=== PATIENT | female | born 1985 | race Caucasian/White ===

== ENCOUNTER 2018-05-09 16:24 | Emergency (ER) | payer OTHER ==
--- NOTE | 2018-05-09 16:26 | PDOC ---
History of Present Illness - General Chief Complaint: SIRS, Suspected/Possible Stated Complaint: UTI SEPSIS Time Seen by Provider: 05/09/18 16:26 History Source: Patient Exam Limitations: Language Barrier (conference interpreter language services used. also used male crystal machining coordinator in room) - History of Present Illness Initial Comments: 05/09/18 17:01 32 yo F with no previous medical hx BIBA (s/p 1 L of NS) presents to the emergency department with fever, nausea, and vomiting (5x, NBNB) for the past 2 days with a recent vaginal delivery without complications on 03/28/2018. The patient presents with multiple bodily complaints including chest pain, dysuria, midline back pain, abdominal pain, and generalized body aches. She has been having RLQ pain non radiating described "colicky" in nature. Denies recent sick contacts, hematochezia, diarrhea, and last BM yesterday. In addition, she states she is having chest pain in the substernal region, sharp, non radiating, and constant for the past 2-3 hours with associative SOB. In addition, she endorses having dysuria for the past two weeks, but denies hematuria, vaginal bleeding, flank pain, and vaginal discharge. Denies recent travels, recent immobilization, recent surgeries, hormone use, and hx of DVT/PE. Pmhx: None Shx: abdominoplasty 2014 Meds: None Allergies: NKDA Social: Denies tobacco, alcohol, and substance abuse. PMD: Denies one. Her was at [facility]. Past History - Past Medical History Allergies/Adverse Reactions: Allergies Allergy/AdvReac Type Severity Reaction Status Date / Time No Known Allergies Allergy Verified 05/09/18 16:25 Home Medications: Ambulatory Orders Ciprofloxacin HCl 500 mg PO BID #14 tablet 05/09/18 Review of Systems - Review of Systems Able to Perform ROS?: Yes (conference interpreter used) Is the patient limited Cameroonian proficient: Yes Constitutional: Yes: Chills, Diaphoresis, Fever, Malaise. No: Unintentional Wgt. Loss HEENTM: No: Recent change in vision, Nose Pain, Throat Pain, Mouth Pain, Mouth Swelling Respiratory: Yes: Shortness of Breath. No: Cough, Hemoptysis Cardiac (ROS): Yes: Chest Pain. No: Lightheadedness, Palpitations, Syncope, Chest Tightness ABD/GI: Yes: Nausea, Poor Fluid Intake, Vomiting, Abdominal cramping. No: Constipated, Diarrhea, Rectal Bleeding, Tarry Stools : Yes: Dysuria, Other (denies vaginal bleeding and discharge). No: Burning, Discharge, Flank Pain, Hematuria, Urgency Musculoskeletal: Yes: Back Pain Integumentary: No: Bruising, Rash Neurological: Yes: Headache. No: Numbness, Weakness, Unsteady Gait, Ataxia, Dizziness Psychiatric: No: Stressors Endocrine: No: Unexplained Weight Loss Hematologic/Lymphatic: No: Anemia *Physical Exam - Physical Exam General Appearance: Yes: Nourished, Appropriately Dressed, Other (looks uncomfortable.). No: Apparent Distress HEENT: positive: EOMI, MONICA, Normal Voice, Symmetrical. negative: Scleral Icterus (R), Scleral Icterus (L) Neck: positive: Trachea midline, Normal Thyroid. negative: Tender, Decreased range of motion, Lymphadenopathy (R), Lymphadenopathy (L), Tender lateral, Tender midline Respiratory/Chest: positive: Lungs Clear, Normal Breath Sounds, Rapid RR. negative: Chest Tender, Respiratory Distress, Accessory Muscle Use, Crackles, Rales, Rhonchi, Stridor, Wheezing Cardiovascular: positive: Regular Rhythm, S1, S2, Tachycardia. negative: Systolic Murmur Gastrointestinal/Abdominal: positive: Normal Bowel Sounds, Tender (RLQ, LLQ, suprapubic regions. ), Flat, Soft. negative: Distended, Rebound, Hernia Lymphatic: negative: Adenopathy Musculoskeletal: positive: Normal Inspection, Vertebral Tenderness (L5 region midline). negative: CVA Tenderness Extremity: positive: Normal Capillary Refill, Normal Inspection, Normal Range of Motion. negative: Tender, Pedal Edema, Swelling, Calf Tenderness Integumentary: positive: Normal Color, Dry, Warm, Other (hot to the touch ). negative: Pale, Cold, Clammy, Diaphoresis, Rash Neurologic: positive: quality control director II-XII NML intact, Fully Oriented, Alert, Normal Mood/ Affect, Normal Response, Motor Strength 5/5. negative: Facial Droop, Sensory Deficit ED Treatment Course - LABORATORY CBC & Chemistry Diagram: 05/09/18 16:59 05/09/18 16:59 Medical Decision Making - Medical Decision Making 05/09/18 17:40 32 yo F with no previous medical hx BIBA (s/p 1 L of NS) presents to the emergency department with fever, nausea, and vomiting (5x, NBNB) for the past 2 days with a recent vaginal delivery without complications on 03/28/2018. Initial vitals: Initial Vital Signs Temp Pulse Resp BP Pulse Ox 102.4 F H 115 H 20 118/68 100 05/09/18 16:26 05/09/18 16:26 05/09/18 16:26 05/09/18 16:26 05/09/18 16:26 Work up: pt presents to the ED with multiple complaints: ddx is broad. chest pain: PE (cannot PERC out due to tachycardia; pt denies recent travels/ immobilization/surgeries/hormone use/hx of DVT/PE; higher risk due to recent likely d-dimer will be elevated due to inflammation (SIRS positive) vs ACS (less likely) vs pericarditis vs PNA vs pleuritis. RLQ pain/dysuria: appendicitis vs colitis vs nephrolithiasis vs UTI vs urosepsis vs retained products of conception (unlikely due to being 6 months out ) vs infectious etiology within the system fever/chills with tachycardia: influenza vs bacterial etiology, thyroid etiology (thyrotoxicosis unlikely denies hx but higher risk due to post- period). Following tests will be ordered: sepsis protocol plus the following 05/09/18 19:06 HR was reassessed it was 84. 103/61. *DC/Admit/Observation/Transfer Diagnosis at time of Disposition: UTI (urinary tract infection) Qualifiers: Urinary tract infection type: site unspecified Hematuria presence: without hematuria Qualified Code(s): N39.0 - Urinary tract infection, site not specified - Discharge Dispostion Disposition: HOME Decision to Admit order: No - Prescriptions Prescriptions: Ciprofloxacin HCl 500 mg PO BID #14 tablet - Referrals Referrals: Jay Winter MD [Primary Care Provider] - Elkin Rangel MD [Staff Physician] - - Patient Instructions Printed Discharge Instructions: DI for Urinary Tract Infection (UTI) Additional Instructions: You were seen in the emergency department for your fever and abdominal pain. Your labs show no elevation in your white blood cell count, but your urine showed white blood cells and findings consistent with UTI. We assessed whether you had a pulmonary embolism and the test was negative. Your temperature is elevated and your heart rate is too but this is consistent with an elevated temperature. We are prescribing you ciprofloxacin. Take this as directed on the label. In addition, and this is very important, please make sure to express your breast milk, meaning waste the breast milk 2 hours after taking the medication and then feed the baby breast milk. This is very important. We are referring you to an OBGYN doctor here that will call you Friday morning. They will try to get you into an appointment on Friday coming up. Please return to the emergency department if you have worsening abdominal pain, worsening fevers and chills, vomiting that is uncontrollable, and if you have new pain emerge. Please follow up with your primary medical doctor within 48-72 hours after discharge. - Post Discharge Activity
[2018-05-09 16:28] VITALS: BMI 24.5
[2018-05-09] MEDS ORDERED: SODIUM CHLORIDE 1,823 ML IV ONE (16:48)
[2018-05-09] MEDS ORDERED: ACETAMINOPHEN 1000 MG/100 ML VIAL (NON FORMULARY) IVPB ONE (16:50)
[2018-05-09] MEDS ORDERED: ONDANSETRON 4 MG/2 ML VIAL IVPUSH ONE (16:52)
--- NOTE | 2018-05-09 16:53 | PDOC ---
Attending Attestation - HPI HPI: 05/09/18 17:18 The patient is a 32 year old female with no reported past medical history presents to the emergency department with fever, nausea, vomiting, dysuria and right lower quadrant pain. The patient is 1 month s/p vaginal delivery with epidural (with complication/ reports they had to stick her multiple times). The patient reports she has been having 2 weeks of dysuria accompanied by a sudden onset of midsternal anterior chest pain, nonradiating, associated with shortness of breath. En route to the ER, the patients EKG read sinus tachycardia. Denies vaginal bleeding, hematochezia, diarrhea, cough, recent travel, illness, ear pain. No hx of thyroid problems. PCP: None. <Danielle Chairez - Last Filed: 05/09/18 17:18> - Physicial Exam PE: 05/09/18 19:25 Agree with resident exam. patient is alert and oriented and in no acute distress. + Mild tachycardia. Heart regular rate and rhythm. Lungs clear b/ l. Abdomen soft, non tender, non distended, without guarding or rebound. 05/09/18 19:32 - Medical Decision Making 05/09/18 19:27 pt presents to the ED complaining of LLQ pain and dysuria for two weeks and substernal, pleuritic chest pain for three hours. 1. dysuria--likely secondary to UTI. patient is also complaining of abdominal pain and flank pain and has fever. Will treat for pyelonephritis. According to [place] [employer] literature, Cipro is safe during breast feeding, so will treat with cipro. Will instruct the patient to dump her milk 2 hours after dosing and to inform the child's network security administrator that she is and on cipro. She is tolerating PO with normal lactate, so she is likely safe for discharge, although she will be instructed to the Ed for worsening symptoms. 2. Chest pain--concern for PE, given her recent post status and the timing of her symptoms. Low risk per wells criteria, so D dimer checked, which was found to be elevated. Will check CT PE. 05/09/18 19:32 <Ninoska Rae - Last Filed: 05/09/18 19:34>
[2018-05-09 17:11] LABS: VENOUS PC02 40.4 mmHg (38-52); VENOUS PH 7.41 (7.32-7.42); VENOUS PO2 44.8 mmHg (28-48)
[2018-05-09] MEDS ORDERED: ACETAMINOPHEN INJECTION 100 ML IVPB ONE (17:11)
[2018-05-09] MEDS ORDERED: ONDANSETRON 4 MG/2 ML VIAL ONE (17:11)
[2018-05-09 17:15] LABS: BASO % 0.2 % (0-2.0); EOS % 0.3 % (0-4.5); HEMATOCRIT 35.5 % (32.4-45.2); HEMOGLOBIN 12.5 GM/dL (10.7-15.3); LYMPH % 9.1 % (8-40); MCHC 35.3 g/dl (32.0-36.0); MEAN CELL VOLUME 85.1 fl (80-96); MONO % 4.6 % (3.8-10.2); NEUT % 85.8 % (42.8-82.8); PLATELET COUNT 137 K/MM3 (134-434); RBC 4.17 M/mm3 (3.60-5.2); RDW 16.6 % (11.6-15.6); WHITE BLOOD COUNT 9.7 K/mm3 (4.0-10.0)
[2018-05-09 17:22] LABS: INR 1.26 (0.83-1.09); PROTHROMBIN TIME (PATIENT) 14.9 SEC (9.7-13.0)
[2018-05-09 17:41] LABS: ALBUMIN 3.5 g/dl (3.4-5.0); ALK PHOS 101 U/L (45-117); ANION GAP 10 MMOL/L (8-16); BILIRUBIN,TOTAL 0.7 mg/dL (0.2-1); BLOOD UREA NITROGEN 14 mg/dL (7-18); CHLORIDE 105 mmol/L (98-107); CO2 25 mmol/L (21-32); CREATININE 0.8 mg/dL (0.55-1.3); GLUCOSE,RANDOM 114 mg/dL (74-106); POTASSIUM 3.2 mmol/L (3.5-5.1); SGOT/AST 31 U/L (15-37); SGPT/ALT 50 U/L (13-61); SODIUM 139 mmol/L (136-145)
[2018-05-09 17:45] LABS: URINE APPEARANCE CLOUDY; URINE BILIRUBIN NEGATIVE (<2.0 mg/dL); URINE COLOR YELLOW; URINE GLUCOSE (UA) NEGATIVE (NEGATIVE); URINE KETONE NEGATIVE (NEGATIVE); URINE LEUK ESTERASE 2+ (NEGATIVE); URINE NITRITE POSITIVE (NEGATIVE); URINE PROTEIN 1+ (NEGATIVE); URINE UROBILINOGEN NEGATIVE mg/dL (0.2-1.0)
[2018-05-09 18:01] LABS: EPI CELLS RARE /HPF (FEW); URINE BACTERIA MANY /hpf (NONE SEEN); URINE HYALINE CAST 2 /lpf; URINE MUCUS RARE
[2018-05-09] MEDS ORDERED: CIPROFLOXACIN 500 MG TABLET (RESTRICTED TO ID) PO ONE (18:14)
[2018-05-09] MEDS ORDERED: CEFTRIAXONE 250 MG in DEXTROSE 5%-WATER - 50 ML IVPB ONE (20:45)
[2018-05-09] MEDS ORDERED: cefTRIAXone SODIUM 1 GM VIAL ONE (20:59)
[2018-05-09 22:23] VITALS: BP 100/64; PULSE 112; TEMP 98.1
--- NOTE | 2018-05-10 07:01 | PDOC ---
*Physical Exam - Vital Signs Last Vital Signs Temp Pulse Resp BP Pulse Ox 98.1 F 112 H 18 100/64 98 05/09/18 22:23 05/09/18 22:23 05/09/18 22:23 05/09/18 22:23 05/09/18 22:23 ED Treatment Course - LABORATORY CBC & Chemistry Diagram: 05/09/18 16:59 05/09/18 16:59 - ADDITIONAL ORDERS Additional order review: Laboratory Results 05/09/18 16:59 Blood Type O POSITIVE Antibody Screen Negative 05/09/18 16:59 Blood Culture - Preliminary Blood - Peripheral Venous Pending Organism 05/09/18 16:59 RBC 4.17 MCV 85.1 MCHC 35.3 RDW 16.6 H MPV 9.0 Neutrophils % 85.8 H Lymphocytes % 9.1 Monocytes % 4.6 Eosinophils % 0.3 Basophils % 0.2 - Medications Given in the ED: ED Medications Discontinued Medications Generic Name Dose Route Start Last Admin Trade Name Freq PRN Reason Stop Dose Admin Acetaminophen 1,000 mg 05/09/18 16:50 05/09/18 17:26 Ofirmev Injection - IVPB 05/09/18 16:51 1,000 mg ONCE ONE Administration Ceftriaxone Sodium 250 mg 05/09/18 21:01 05/09/18 21:10 Rocephin - IM 05/09/18 21:02 250 mg ONCE ONE Administration Ciprofloxacin 500 mg 05/09/18 18:14 05/09/18 18:43 Cipro (Restricted To Id) PO 05/09/18 18:15 500 mg ONCE ONE Administration Sodium Chloride 1,823 mls @ 911.5 mls/hr 05/09/18 16:48 05/09/18 16:59 Normal Saline - 30 ml/kg infuse over 2 hr (1823 ml) 05/09/18 18:47 911.5 mls/hr IV Administration ONCE ONE Ceftriaxone Sodium 250 mg/ 50 mls @ 100 mls/hr 05/09/18 20:45 05/09/18 21:17 Dextrose IVPB 05/09/18 21:14 Not Given ONCE ONE Ondansetron HCl 4 mg 05/09/18 16:52 05/09/18 17:27 Zofran Injection IVPUSH 05/09/18 16:53 4 mg ONCE ONE Administration Medical Decision Making - Medical Decision Making 05/10/18 07:00 I called both phone #s and left messages asking pt to return for her positive blood culture: GRAM + bacilli in pairs. *DC/Admit/Observation/Transfer Diagnosis at time of Disposition: UTI (urinary tract infection) Qualifiers: Urinary tract infection type: site unspecified Hematuria presence: without hematuria Qualified Code(s): N39.0 - Urinary tract infection, site not specified - Discharge Dispostion Disposition: HOME Condition at time of disposition: Improved - Prescriptions Prescriptions: Ciprofloxacin HCl 500 mg PO BID #14 tablet - Referrals Referrals: Jay Winter MD [Primary Care Provider] - Elkin Rangel MD [Staff Physician] - - Patient Instructions Printed Discharge Instructions: DI for Urinary Tract Infection (UTI) Additional Instructions: You were seen in the emergency department for your fever and abdominal pain. Your labs show no elevation in your white blood cell count, but your urine showed white blood cells and findings consistent with UTI. We assessed whether you had a pulmonary embolism and the test was negative. Your temperature is elevated and your heart rate is too but this is consistent with an elevated temperature. We are prescribing you ciprofloxacin. Take this as directed on the label. In addition, and this is very important, please make sure to express your breast milk, meaning waste the breast milk 2 hours after taking the medication and then feed the baby breast milk. This is very important. We are referring you to an OBGYN doctor here that will call you Friday morning. They will try to get you into an appointment on Friday coming up. Please return to the emergency department if you have worsening abdominal pain, worsening fevers and chills, vomiting that is uncontrollable, and if you have new pain emerge. Please follow up with your primary medical doctor within 48-72 hours after discharge. - Post Discharge Activity
--- NOTE | 2018-05-11 11:24 | EKG ---
Test Reason : Blood Pressure : / mmHG Vent. Rate : 112 BPM Atrial Rate : 112 BPM P-R Int : 144 ms QRS Dur : 078 ms QT Int : 326 ms P-R-T Axes : 062 -01 007 degrees QTc Int : 444 ms SINUS TACHYCARDIA OTHERWISE NORMAL ECG NO PREVIOUS ECGS AVAILABLE Confirmed by DANIEL GALE MD ([id number]) on 05/11/2018 11:23:46 AM Referred By: Confirmed By:DANIEL GALE MD
== END 2018-05-09 22:27 | disposition home or self-care (01) ==
LOC: JER 16:24
PROC: 3E02329 Introduction of Other Anti-infective into Muscle, Percutaneous Approach (ICD-10-PCS; principal; 2018-05-09)
PROC: 3E033GC Introduction of Other Therapeutic Substance into Peripheral Vein, Percutaneous Approach (ICD-10-PCS; 2018-05-09)
PROC: 3E0337Z Introduction of Electrolytic and Water Balance Substance into Peripheral Vein, Percutaneous Approach (ICD-10-PCS; 2018-05-09)
PROC: 3E0337Z Introduction of Electrolytic and Water Balance Substance into Peripheral Vein, Percutaneous Approach (ICD-10-PCS; 2018-05-09)
DX: O86.29 Other urinary tract infection following delivery (principal)
CPT/HCPCS: 36415; 71275-TC; 80053; 81003; 81015; 82803; 83605; 84436; 84439; 84443; 84484; 84703; 85025; 85379; 85610; 85730; 86850; 86900; 86901; 87040; 87086; 87186; 87491; 87591; 87661; 87804; 93005; 93010; 96361; 96372; 96374; 96375; 99285-25; J0131; J7030

== ENCOUNTER 2018-09-01 16:48 | Emergency (ER) | payer OTHER ==
[2018-09-01 17:03] VITALS: BMI 30.9
[2018-09-01] MEDS ORDERED: ACETAMINOPHEN 1000 MG/100 ML VIAL (NON FORMULARY) IVPB ONE (17:24)
[2018-09-01] MEDS ORDERED: SODIUM CHLORIDE 0.9% 500 ML INFUS.BAG IV ONE (17:24)
[2018-09-01] MEDS ORDERED: CEFTRIAXONE 1,000 MG in DEXTROSE 5%-WATER - 50 ML IVPB ONE (17:26)
--- NOTE | 2018-09-01 17:27 | PDOC ---
History of Present Illness - General Chief Complaint: Urinary Problem Stated Complaint: PAIN/CHILLS Time Seen by Provider: 09/01/18 17:16 - History of Present Illness Initial Comments: 09/01/18 17:25 35-year-old female with fever malaise 2 days dysuria and bilateral flank pain no comorbidities Past History - Past Medical History Allergies/Adverse Reactions: Allergies Allergy/AdvReac Type Severity Reaction Status Date / Time No Known Allergies Allergy Verified 09/01/18 16:59 Home Medications: Ambulatory Orders Ibuprofen [Motrin -] 400 mg PO TID 09/01/18 COPD: No - Suicide/Smoking/Psychosocial Hx Smoking History: Never smoked Have you smoked in the past 12 months: No Hx Alcohol Use: No Drug/Substance Use Hx: No Review of Systems - Review of Systems Constitutional: Yes: See HPI, Chills, Fever, Malaise, Night Sweats : Yes: Burning, Dysuria, Flank Pain *Physical Exam - Vital Signs Last Vital Signs Temp Pulse Resp BP Pulse Ox 101.7 F H 132 H 20 105/58 L 98 09/01/18 16:59 09/01/18 16:59 09/01/18 16:59 09/01/18 16:59 09/01/18 16:59 - Physical Exam Comments: 09/01/18 17:25 HEAD: NC/AT EYES: Conjuntiva clear Ears: Canals and TM's normal NOSE: No d/c THROAT: Moist mucous membrances, oral pharanx clear, uvula midline NECK: Supple without adenopathy CARDIAC: S1 S2 LUNGS: CTA Full and Equal breath sounds ABDOMEN: Soft NT ND + CVAT B MS: Full ROM in all joints without edema NEUROLOGIC: No gross sensory or motor deficits, NVID SKIN: Normal color and temperature no lesions or rashes Medical Decision Making - Medical Decision Making 09/01/18 17:26 I suspect urosepsis, I will transfer patient to main ER *DC/Admit/Observation/Transfer Diagnosis at time of Disposition: UTI (urinary tract infection) - Referrals - Patient Instructions - Post Discharge Activity
[2018-09-01] MEDS ORDERED: ACETAMINOPHEN INJECTION 100 ML IVPB ONE (17:32)
[2018-09-01 17:56] LABS: EPI CELLS 2.3 /HPF (0-5); HYALINE CASTS 1 /hpf (0-8); PH,URINE 5.5 (5.0-8.0); URINE APPEARANCE CLOUDY; URINE BACTERIA 2269.44 /hpf (NEGATIVE); URINE BILIRUBIN NEGATIVE (NEGATIVE); URINE COLOR YELLOW; URINE GLUCOSE (UA) NEGATIVE (NEGATIVE); URINE KETONE NEGATIVE (NEGATIVE); URINE LEUK ESTERASE 3+ (NEGATIVE); URINE NITRITE NEGATIVE (NEGATIVE); URINE PROTEIN NEGATIVE (NEGATIVE); URINE RBC 6 /hpf (0-4); URINE UROBILINOGEN 0.2 mg/dL (0.2-1.0); URINE WBC 258 /hpf (0-5)
[2018-09-01 18:29] LABS: BASO % 0.3 % (0-2.0); EOS % 0.1 % (0-4.5); HEMATOCRIT 38.6 % (32.4-45.2); HEMOGLOBIN 13.5 GM/dL (10.7-15.3); LYMPH % 18.4 % (8-40); MCH 31.2 pg (25.7-33.7); MCHC 34.9 g/dl (32.0-36.0); MEAN CELL VOLUME 89.5 fl (80-96); MEAN PLT VOLUME 9.2 fl (7.5-11.1); MONO % 7.8 % (3.8-10.2); NEUT % 73.4 % (42.8-82.8); PLATELET COUNT 219 K/MM3 (134-434); RBC 4.32 M/mm3 (3.60-5.2); RDW 13.5 % (11.6-15.6); WHITE BLOOD COUNT 9.9 K/mm3 (4.0-10.0)
[2018-09-01] MEDS ORDERED: CEFTRIAXONE 1 GM/50 ML BAG ONE (18:47)
--- NOTE | 2018-09-01 18:52 | PDOC ---
Attending Attestation - HPI HPI: 09/01/18 20:32 The patient is a 33 year old female with a past medical history of pyelonephritis who presents to the emergency department for evaluation of a 3 day history of flank pain, dysuria, fevers, and chills. Patient reports seeing her PCP who gave her advil with minimal alleviation to her symptoms. Patient denies chest pain, shortness of breath, headache, dizziness, nausea, vomiting, diarrhea, constipation, dysuria, hematuria, and urinary urgency/ frequency. - Physicial Exam PE: 09/01/18 20:35 33 y/o female ill appearing female with rigors head ncat neck supple Heart Tachycardic. lungs clear to auscultation bilaterally Abdomen soft, (+)flank pain ext no e/c/c, MAEx4 skin warm and dry,no rashes neuro A&Ox3,no gross focal neuro deficits, ambulatory - Medical Decision Making 09/01/18 20:35 Documentation prepared by Jose Luis Jacobs, acting as medical parasitologist for Cherri Lara MD. <Jose Luis Jacobs - Last Filed: 09/01/18 20:32> - Resident Resident Name: Jeremiah Oliva - ED Attending Attestation I have performed the following: I have examined & evaluated the patient, The case was reviewed & discussed with the resident, I agree w/resident's findings & plan, Exceptions are as noted - Medical Decision Making 09/01/18 20:40 pt diagnosed w pyelonephritis and given antibiotics lactic was wnl labs reviewed pt able to take po and is being discharged with cipro <Cherri Lara - Last Filed: 09/01/18 20:41>
[2018-09-01 18:54] LABS: ALBUMIN 3.8 g/dl (3.4-5.0); ALK PHOS 137 U/L (45-117); ANION GAP 9 MMOL/L (8-16); BILIRUBIN,TOTAL 0.4 mg/dL (0.2-1); BLOOD UREA NITROGEN 8 mg/dL (7-18); CALCIUM 8.4 mg/dL (8.5-10.1); CHLORIDE 102 mmol/L (98-107); CO2 24 mmol/L (21-32); CREATININE 0.6 mg/dL (0.55-1.3); GLUCOSE,RANDOM 111 mg/dL (74-106); SGOT/AST 30 U/L (15-37); SGPT/ALT 72 U/L (13-61); SODIUM 135 mmol/L (136-145); TOT PROT 7.8 g/dl (6.4-8.2)
--- NOTE | 2018-09-01 18:59 | PDOC ---
History of Present Illness - General Chief Complaint: Urinary Problem Stated Complaint: PAIN/CHILLS Time Seen by Provider: 09/01/18 17:16 History Source: Patient Exam Limitations: No Limitations - History of Present Illness Initial Comments: 09/01/18 18:45 33 yo female no sig pmh, recent vaginal delivery (03/28/2018) and recently treated for UTI with cipro 05/2018 presents to the ED with 2 days of fevers and chills, diffuse body aches, increased frequency of urination with burning pain. Pt admits to associated right flank pain. Presents to main ED with urine showing 3+ LE, 2+ blood, 1L NS and 1g ceftriaxone running with a diagnosis of pylo. Pt states last infection was much worse than today and improved very well with oral Ciprofloxacin. Pt does not have insurance, no PCP and no f/u care. Denies associated symptoms today. Past History - Past Medical History Allergies/Adverse Reactions: Allergies Allergy/AdvReac Type Severity Reaction Status Date / Time No Known Allergies Allergy Verified 09/01/18 16:59 Home Medications: Ambulatory Orders Ciprofloxacin [Cipro -] 500 mg PO Q12H #14 tablet 09/01/18 Ibuprofen [Motrin -] 400 mg PO TID 09/01/18 COPD: No - Suicide/Smoking/Psychosocial Hx Smoking History: Never smoked Have you smoked in the past 12 months: No Hx Alcohol Use: No Drug/Substance Use Hx: No Review of Systems - Review of Systems Constitutional: Yes: Chills, Fever, Other (body aches/pain) HEENTM: No: Throat Pain Respiratory: No: Cough, Shortness of Breath Cardiac (ROS): No: Chest Pain, Edema ABD/GI: No: Constipated, Diarrhea, Nausea, Vomiting : Yes: Burning, Dysuria, Frequency, Flank Pain (right) Musculoskeletal: Yes: Back Pain (right cva) Integumentary: No: Change in Color Neurological: Yes: Weakness (generalized). No: Headache, Numbness, Tingling *Physical Exam - Vital Signs Last Vital Signs Temp Pulse Resp BP Pulse Ox 101.7 F H 132 H 20 105/58 L 98 09/01/18 16:59 09/01/18 16:59 09/01/18 16:59 09/01/18 16:59 09/01/18 16:59 - Physical Exam General Appearance: Yes: Nourished, Appropriately Dressed. No: Apparent Distress HEENT: positive: EOMI Neck: positive: Supple. negative: Tender midline Respiratory/Chest: positive: Lungs Clear, Normal Breath Sounds. negative: Accessory Muscle Use, Crackles, Wheezing Cardiovascular: positive: Regular Rhythm, S1, S2, Tachycardia. negative: Edema , JVD, Murmur Vascular Pulses: Dorsalis-Pedis (R): 4+, Doralis-Pedis (L): 4+ Gastrointestinal/Abdominal: positive: Flat, Soft. negative: Pulsatile Mass, Distended, Guarding, Rebound, Tenderness Musculoskeletal: positive: CVA Tenderness (right) Extremity: positive: Normal Capillary Refill, Normal Inspection Integumentary: positive: Normal Color, Dry, Warm Neurologic: positive: Fully Oriented, Alert, Normal Mood/Affect, Normal Response , Motor Strength / ED Treatment Course - LABORATORY CBC & Chemistry Diagram: 09/01/18 18:14 09/01/18 18:14 - ADDITIONAL ORDERS Additional order review: Laboratory Results 09/01/18 09/01/18 17:27 17:27 Urine Color Yellow Urine Appearance Cloudy Urine pH 5.5 Ur Specific [place] 1.019 Urine Protein Negative Urine Glucose (UA) Negative Urine Ketones Negative Urine Blood 2+ H Urine Nitrite Negative Urine Bilirubin Negative Urine Urobilinogen 0.2 Ur Leukocyte Esterase 3+ H Urine WBC (Auto) 258 Urine RBC (Auto) 6 Urine Casts (Auto) 1 U Epithel Cells (Auto) 2.3 Urine Bacteria (Auto) 2269.44 Urine HCG, Qual Negative 09/01/18 18:14 RBC 4.32 MCV 89.5 MCHC 34.9 RDW 13.5 D MPV 9.2 Neutrophils % 73.4 Lymphocytes % 18.4 D Monocytes % 7.8 Eosinophils % 0.1 Basophils % 0.3 - Medications Given in the ED: ED Medications Discontinued Medications Generic Name Dose Route Start Last Admin Trade Name Freq PRN Reason Stop Dose Admin Acetaminophen 1,000 mg 09/01/18 17:24 09/01/18 18:35 Ofirmev Injection - IVPB 09/01/18 17:25 1,000 mg ONCE ONE Administration Sodium Chloride 1,000 ml 09/01/18 17:24 09/01/18 18:34 Normal Saline - IV 03/26/19 17:25 1,000 ml ONCE ONE Administration Medical Decision Making - Medical Decision Making 33 yo female no sig pmh, recent vaginal delivery (03/28/2018) and recently treated for UTI with cipro 05/2018 presents to the ED with 2 days of fevers and chills, diffuse body aches, increased frequency of urination with burning pain. Pt admits to associated right flank pain. Presents to main ED with urine showing 3+ LE, 2+ blood, 1L NS and 1g ceftriaxone running with a diagnosis of pylo. Pt states last infection was much worse than today and improved very well with oral Ciprofloxacin. Pt does not have insurance, no PCP and no f/u care. Denies associated symptoms today. Vitals show elevated HR and temp DDX INLT: UTI/Pyelo/renal stone, appendicitis, cholelithiasis, influenza CBC WNL CMP shows mild elevation ALT and ALK phos lactate wnl preg neg influenza neg UA shows 3+ LE and 2+ blood Pt has clinical pyelo of lesser intensity than previous pyelo this past Dec which resolved after oral antibiotics. Discussed another trail of oral antibiotics vs admission, pt agrees DC with antibiotics is the best plan and will call the PCP provided to discuss lack of insurance and f/u care. Repeat vitals show improvement in HR and temp pt understands and agrees with Dc plans *DC/Admit/Observation/Transfer Diagnosis at time of Disposition: UTI (urinary tract infection) - Discharge Dispostion Disposition: HOME Condition at time of disposition: Stable Decision to Admit order: No - Prescriptions Prescriptions: Ciprofloxacin [Cipro -] 500 mg PO Q12H #14 tablet - Referrals Referrals: Viviana Laguna MD [Staff Physician] - - Patient Instructions Printed Discharge Instructions: DI for Kidney Infection Additional Instructions: Please call the Primary Doctor referred to you for a follow up appointment within the next 48 hours. Take the medication Ciprofloxacin 2 times a day for the next 7 days and take Tylenol and Motrin for fevers. Return to the ER for new or concerning symptoms including but not limited to: high fevers and pain not relieved by over the counter medication, inability to urinate, severe abdominal or back pain. Thank you - Post Discharge Activity
[2018-09-01 20:48] VITALS: BP 100/56; PULSE 96; TEMP 98.2
--- NOTE | 2018-09-02 09:36 | EKG ---
Test Reason : Blood Pressure : / mmHG Vent. Rate : 099 BPM Atrial Rate : 099 BPM P-R Int : 142 ms QRS Dur : 078 ms QT Int : 344 ms P-R-T Axes : 046 003 -08 degrees QTc Int : 441 ms NORMAL SINUS RHYTHM NONSPECIFIC T WAVE ABNORMALITY ABNORMAL ECG WHEN COMPARED WITH ECG OF 09-MAY-2018 17:03, NO SIGNIFICANT CHANGE WAS FOUND Confirmed by RAISA CALVILLO, CECY ([id number]) on 09/02/2018 9:35:59 AM Referred By: Confirmed By:CECY KLINE MD
== END 2018-09-01 20:47 | disposition home or self-care (01) ==
LOC: JERFT 16:48 → JER 16:48
PROC: 3E03329 Introduction of Other Anti-infective into Peripheral Vein, Percutaneous Approach (ICD-10-PCS; principal; 2018-09-01)
PROC: 3E033NZ Introduction of Analgesics, Hypnotics, Sedatives into Peripheral Vein, Percutaneous Approach (ICD-10-PCS; 2018-09-01)
DX: N39.0 Urinary tract infection, site not specified (principal)
CPT/HCPCS: 36415; 80053; 81003; 83605; 84703; 85025; 87040; 87086; 87186; 87804; 93005; 93010; 96365; 96375; 99281-25; J0131